=== PATIENT | female | born 1980 | race Two or more races ===

== ENCOUNTER 2016-11-07 19:31 | Emergency (ER) | payer BC, OTHER ==
[~2016-11-07] VITALS: Ht 172.7 cm; Wt 59.0 kg
[2016-11-07 19:38] VITALS: BP 124/77
[2016-11-07 19:57] LABS: BASOPHILS # (AUTO) 0.1 /CMM (0.0-0.2); BASOPHILS % (AUTO) 0.9 % (0.0-2.0); DIFF TOTAL % 100 %; EOSINOPHILS # (AUTO) 0.2 /CMM (0.0-0.7); EOSINOPHILS % (AUTO) 2.6 % (0.0-6.0); HEMATOCRIT 43 % (33-45); HEMOGLOBIN 14.3 g/dL (11.5-14.8); LYMPHOCYTES # (AUTO) 1.9 /CMM (0.8-4.8); LYMPHOCYTES % (AUTO) 24.8 % (20.0-44.0); MEAN CORPUSCULAR HEMOGLOBIN 29 PG (26.0-33.0); MEAN CORPUSCULAR HGB CONC 33 g/dl (31.0-36.0); MEAN CORPUSCULAR VOLUME 88 fL (82-100); MONOCYTES # (AUTO) 0.5 /CMM (0.1-1.30); MONOCYTES % (AUTO) 6.4 % (2.0-12.0); NEUTROPHILS # (AUTO) 4.8 /CMM (1.8-8.9); NEUTROPHILS % (AUTO) 65.3 % (43.0-81.0); PLATELET COUNT (AUTO) 246 /CMM (150-450); WHITE BLOOD COUNT (AUTO) 7.5 K/uL (4.3-11.0)
[2016-11-07 19:59] LABS: KETONES,URINE Negative (NEGATIVE); LEUKOCYTE ESTERASE ,URINE Negative (NEGATIVE); PH,URINE 7.5 (5.0-8.0)
[2016-11-07 20:00] LABS: ADD UA MICROSCOPIC YES
[2016-11-07 20:22] LABS: ADD URINE CULTURE NO; RBC,URINE 51-80 /HPF (0-2); WBC,URINE 0-2 /HPF (0-3)
== END 2016-11-07 22:23 | disposition home or self-care (01) ==
LOC: ER 19:33
DX: O20.0 Threatened abortion (principal); Z88.6 Allergy status to analgesic agent
CPT/HCPCS: 36415; 76856; 81001; 84702; 85025; 99285; A4606; Z7610; 81000-TC